=== PATIENT | female | born 1955 | race Caucasian/White ===

== ENCOUNTER → 2017-06-29 13:46 | Outpatient (CLI) | payer OTHER, SELFPAY ==
[2017-06-29 16:31] LABS: Hemoglobin A1c 5.2 % (4.2-6.3)
[2017-06-29 16:32] LABS: Free T3 2.5 pg/mL (2.18-3.98); T4 Free Direct 0.97 ng/dL (0.76-1.46); Thyroid Stim Hormone (TSH) 2.22 uIU/mL (0.358-3.74)
[2017-07-01 12:56] LABS: ANTINUCLEAR ANTIBODIES DIRECT Negative (Negative)
== END ==
PROVIDERS: Family Provider Family Medicine; PCP Family Medicine; Visit Provider Family Medicine
DX: R76.8 Other specified abnormal immunological findings in serum (principal); R73.01 Impaired fasting glucose; H05.20 Unspecified exophthalmos; R25.1 Tremor, unspecified
CPT/HCPCS: 36415; 83036; 84439; 84443; 84481; 86038; 86225; 86235

== ENCOUNTER → 2018-01-11 07:08 | Outpatient (CLI) | payer OTHER, SELFPAY ==
--- NOTE | 2018-01-11 07:11 | BI_ITS ---
MAMMOGRAPHY - BILATERAL SCREENING REASON FOR EXAM: Female, 62 years old. Routine annual screening examination. PERTINENT HISTORY: Non-contributory. TECHNIQUE: Digital bilateral breast sam (3D mammographic acquisition) in the CC and MLO projections. 2-D mediolateral oblique (MLO) and craniocaudad (CC) views of both breasts were obtained. CAD: Full Field Digital Mammography with Computer Added Detection was performed. COMPARISON: Comparison is made with prior study dated December 24, 2016 and December 24, 2015. FINDINGS: Breast Composition: The breasts are almost entirely fatty. There are no dominant masses or suspicious calcifications. Stable small bilateral axillary lymph nodes. No other significant abnormalities are identified. There has been no significant change since the prior study. BI/SCREENING MAMM (CAD), BILAT IMPRESSION: Stable bilateral screening mammogram. Yearly follow-up mammogram recommended. (A) ASSESSMENT CATEGORY: BIRADS Category 2: Benign. A letter regarding these results will be sent to the patient by the facility within 30 days. Approximately 10% of breast cancers are not detected by mammography. A normal mammogram should not delay biopsy of a clinically suspicious abnormality. [id number] Electronically Signed: Lencho Marinelli MD at 10:16 EST Tel [phone], Service support ,
== END ==
PROVIDERS: Family Provider Family Medicine; PCP Family Medicine; Referring Provider Family Medicine; Visit Provider Family Medicine
DX: Z12.31 Encounter for screening mammogram for malignant neoplasm of breast (principal)
CPT/HCPCS: 77063; 77067

== ENCOUNTER → 2019-01-14 10:42 | Outpatient (CLI) | payer OTHER, SELFPAY ==
--- NOTE | 2019-01-14 10:45 | BI_ITS ---
MAMMOGRAPHY - BILATERAL SCREENING REASON FOR EXAM: Female, 63 years old. Routine annual screening examination. PERTINENT HISTORY: Aunt with breast cancer. TECHNIQUE: Digital bilateral breast sam (3D mammographic acquisition) in the CC and MLO projections. 2-D mediolateral oblique (MLO) and craniocaudad (CC) views of both breasts were obtained. CAD: Full Field Digital Mammography with Computer Added Detection was performed. COMPARISON: Comparison is made with prior study dated January 11, 2018 and December 24, 2016. FINDINGS: Breast Composition: The breasts are almost entirely fatty. There are no dominant masses or suspicious calcifications. Stable small bilateral axillary lymph nodes. No other significant abnormalities are identified. There has been no significant change since the prior study. BI/SCREENING MAMM (CAD), BILAT IMPRESSION: Stable bilateral screening mammogram. Yearly follow-up mammogram recommended. (A) ASSESSMENT CATEGORY: BIRADS Category 2: Benign. A letter regarding these results will be sent to the patient by the facility within 30 days. Approximately 10% of breast cancers are not detected by mammography. A normal mammogram should not delay biopsy of a clinically suspicious abnormality. [id number] Electronically Signed: Lencho Marinelli, at 12:53 EST , Service support ,
== END ==
PROVIDERS: Family Provider Family Medicine; PCP Family Medicine; Referring Provider Family Medicine; Visit Provider Family Medicine
DX: Z12.31 Encounter for screening mammogram for malignant neoplasm of breast (principal)
CPT/HCPCS: 77063; 77067

== ENCOUNTER → 2020-01-31 10:27 | Outpatient (CLI) | payer MEDICARE, MEDICAID, SELFPAY ==
--- NOTE | 2020-01-31 10:31 | BI_ITS ---
MAMMOGRAPHY - BILATERAL SCREENING REASON FOR EXAM: Female, 64 years old. Routine annual screening examination. PERTINENT HISTORY: Screening TECHNIQUE: Digital bilateral breast diana (3D mammographic acquisition) in the CC and MLO projections. 2-D mediolateral oblique (MLO) and craniocaudad (CC) views of both breasts were obtained. CAD: Full Field Digital Mammography with Computer Added Detection was performed. COMPARISON: Previous mammogram obtained on 01/14/2019 FINDINGS: Breast Composition: Fatty There are no dominant masses or suspicious calcifications. No other significant abnormalities are identified. BI/SCREEN MAMM (CAD) W/DIANA BILAT IMPRESSION: Stable bilateral screening mammogram. Yearly follow-up mammogram recommended. (A) ASSESSMENT CATEGORY: BIRADS Category 1: Negative. A letter regarding these results will be sent to the patient by the facility within 30 days. Approximately 10% of breast cancers are not detected by mammography. A normal mammogram should not delay biopsy of a clinically suspicious abnormality. [id number] Electronically Signed: Bang Avina, at 8:23 EST Tel , Service support ,
== END ==
PROVIDERS: PCP Family Medicine; Referring Provider Family Medicine; Visit Provider Family Medicine
DX: Z12.31 Encounter for screening mammogram for malignant neoplasm of breast (principal)
CPT/HCPCS: 77063; 77067

== ENCOUNTER → 2021-02-01 09:59 | Outpatient (CLI) | payer MEDICARE, MEDICAID, SELFPAY ==
--- NOTE | 2021-02-01 10:02 | BI_ITS ---
MAMMOGRAPHY - BILATERAL SCREENING REASON FOR EXAM: Female, 65 years old. Routine annual screening examination. PERTINENT HISTORY: Aunt with breast cancer. TECHNIQUE: Digital bilateral breast diana (3D mammographic acquisition) in the CC and MLO projections. 2-D mediolateral oblique (MLO) and craniocaudad (CC) views of both breasts were obtained. CAD: Full Field Digital Mammography with Computer Added Detection was performed. COMPARISON: Comparison is made with prior study dated 01/31/2020 and 01/14/2019. FINDINGS: Breast Composition: The breasts are almost entirely fatty. There are no dominant masses or suspicious calcifications. Stable small benign-appearing bilateral axillary lymph nodes. No other significant abnormalities are identified. There has been no significant change since the prior study. BI/SCRN MAMM (CAD)W/DIANA BILAT IMPRESSION: Stable bilateral screening mammogram. Yearly follow-up mammogram recommended. (A) ASSESSMENT CATEGORY: BIRADS Category 2: Benign. A letter regarding these results will be sent to the patient by the facility within 30 days. Approximately 10% of breast cancers are not detected by mammography. A normal mammogram should not delay biopsy of a clinically suspicious abnormality. [id number] Electronically Signed: Lencho Marinelli MD at 8:49 EST , Service support ,
== END ==
PROVIDERS: PCP Family Medicine; Referring Provider Family Medicine; Visit Provider Family Medicine
DX: Z12.31 Encounter for screening mammogram for malignant neoplasm of breast (principal)
CPT/HCPCS: 77063; 77067

== ENCOUNTER → 2022-02-07 | Outpatient (CLI) | payer MEDICARE, MEDICAID, SELFPAY ==
--- NOTE | 2022-02-07 10:27 | BI_ITS ---
MAMMOGRAPHY - BILATERAL SCREENING REASON FOR EXAM: Female, 66 years old. Routine annual screening examination. PERTINENT HISTORY: Aunt with breast cancer. TECHNIQUE: Digital bilateral breast diana (3D mammographic acquisition) in the CC and MLO projections. 2-D mediolateral oblique (MLO) and craniocaudad (CC) views of both breasts were obtained. CAD: Full Field Digital Mammography with Computer Added Detection was performed. COMPARISON: Comparison is made with dictated 02/01/2021 and 01/31/2020 FINDINGS: Breast Composition: The breasts are almost entirely fatty. There are no dominant masses or suspicious calcifications. No other significant abnormalities are identified. There has been no significant change since the prior study. BI/SCRN MAMM (CAD)W/DIANA BILAT IMPRESSION: Stable bilateral screening mammogram. Yearly follow-up mammogram recommended. (A) ASSESSMENT CATEGORY: BIRADS Category 1: Negative. A letter regarding these results will be sent to the patient by the facility within 30 days. Approximately 10% of breast cancers are not detected by mammography. A normal mammogram should not delay biopsy of a clinically suspicious abnormality. [id number] Electronically Signed: Lencho Marinelli MD at 11:49 EST ,
== END | disposition home or self-care (01) ==
PROVIDERS: PCP Family Medicine; Visit Provider Family Medicine
DX: Z12.31 Encounter for screening mammogram for malignant neoplasm of breast (principal)
CPT/HCPCS: 77063; 77067

== ENCOUNTER → 2022-07-26 | Outpatient (CLI) | payer MEDICARE, MEDICAID, SELFPAY ==
--- NOTE | 2022-07-26 09:36 | RAD_ITS ---
STUDY: X-RAY CHEST REASON FOR EXAM: Female, 66 years old. CHEST HEAVINESS, SOB TECHNIQUE: Frontal and lateral views of the chest. COMPARISON: 04/18/2015. FINDINGS: The lungs are clear and expanded. There is no demonstrated pleural abnormality. Normal size heart. Normal mediastinum and roman. Normal visualized pulmonary arteries. Normal visualized aortic arch and descending thoracic aorta. Normal visualized thoracic spine. Normal visualized ribs, clavicles, and shoulders. There is no demonstrated abnormality of the visualized soft tissue structures of the upper abdomen. RAD/Chest PA and Lateral IMPRESSION: Normal x-ray examination of the chest. Electronically Signed: Juan Diego Crews MD at 22:46 EDT ,
[2022-07-26 09:48] LABS: Absolute Lymphocyte Count 2.22 X10^3/uL (0.83-4.51); Absolute Neutrophil Count 3.9 X10^3/uL (2.0-7.7); Basophil# 0.07 X10^3/uL; Eosinophil# 0.16 X10^3/uL; Eosinophils% 2.3 % (0-5); Hematocrit 44.9 % (37-47); Hemoglobin 14.7 g/dL (12.0-15.0); Lymphocyte # 2.22 X10^3/ul (0.83-4.51); Lymphocyte % 31.9 % (19-41); Mean Corp Hgb Conc 32.7 g/dL (32-36); Mean Corpuscular Hgb 29.3 pg (27.0-32.0); Mean Corpuscular Volume 89.4 fL (81-99); Mean Platelet Vol. 8.5 fl (6.2-12.0); Monocyte# 0.56 X10^3/uL; NRBC Flagged by Analyzer 0 % (0-5); Neutrophil # 3.94 X10^3/uL (2.7-7.7); Neutrophil % 56.7 % (47-70); Platelet Count 258 K/mm3 (150-450); RBC Distribution Width CV 12.8 % (11.6-14.6); RBC Distribution Width SD 41.9 fl (35.1-43.9); Red Blood Count 5.02 M/mm3 (4.2-5.4)
[2022-07-26 10:15] LABS: ALB/GLOB Ratio 0.9 RATIO (0.9-2.4); AST(SGOT) 22 U/L (15-37); Alanine Aminotransfer ALT/SGPT 26 U/L (13-56); Albumin, Serum 3.5 g/dL (3.2-5.0); Alkaline Phosphatase 66 U/L (45-117); Anion Gap 7 (5-15); BUN 16 mg/dL (7-18); BUN/Creat Ratio 18.6 RATIO (10-20); CRP, High Sensitivity Cardiac 1.23 mg/L; Calcium,Total 9.3 mg/dL (8.5-10.1); Chloride 107 mmol/L (98-107); Cholesterol 166 mg/dL (200); Creatinine, Serum 0.86 mg/dL (0.55-1.02); EST Glomerular Filtration Rate 70 mL/min (>60); Est Glom Filt Rate - Afr Amer 84 mL/min (>60); Free T3 2.5 pg/mL (2.18-3.98); Glucose 103 mg/dL (74-106); High Density Lipoprotein 49 mg/dL; Magnesium 2.2 mg/dL (1.6-2.6); Potassium 4.5 mmol/L (3.5-5.1); Protein, Total 7.5 g/dL (6.4-8.2); Sodium Level 141 mmol/L (136-145); T4 Free Direct 1.08 ng/dL (0.76-1.46); Thyroid Stim Hormone (TSH) 2.05 uIU/mL (0.358-3.74); Triglycerides 78 mg/dL; Very Low Density Lipoprotein 16 mg/dL (5-40)
== END | disposition home or self-care (01) ==
LOC: LAB 09:18
PROVIDERS: PCP Nurse Practitioner Family; Visit Provider Nurse Practitioner Family
DX: E78.5 Hyperlipidemia, unspecified (principal); I10 Essential (primary) hypertension; R53.83 Other fatigue; R00.2 Palpitations; Z87.19 Personal history of other diseases of the digestive system; R07.89 Other chest pain
CPT/HCPCS: 36415; 71046; 80053; 80061; 83735; 84439; 84443; 84481; 85025; 86141

== ENCOUNTER → 2022-07-29 | Outpatient (CLI) | payer MEDICARE, MEDICAID, SELFPAY | END | disposition home or self-care (01) | LOC: PSN 12:44 | PROVIDERS: PCP Nurse Practitioner Family; Referring Provider Nurse Practitioner Family; Visit Provider Nurse Practitioner Family | DX: R06.02 Shortness of breath (principal); R07.89 Other chest pain; R00.2 Palpitations | CPT/HCPCS: 93225; 93226 ==

== ENCOUNTER → 2022-08-25 | Outpatient (CLI) | payer MEDICARE, MEDICAID, SELFPAY ==
--- NOTE | 2022-08-25 10:45 | STEWCON_ITS ---
Reason For Study: PALPS, CHEST PAIN Stress Results Protocol: Dobutamine Stress Echo With Definiity Maximum Predicted HR: 153 bpm Target HR: 130 bpm % Maximum Predicted HR: 85 % DurationHeart Rate Stage (mm:ss) (bpm) BP Dose Comment BASELINE 67 136/80 5 CC DEFINITY FOR ENTIRE TEST STAGE 1 4:06 67 150/9410.00 STAGE 2 3:00 67 158/8520.00 STAGE 3 3:03 123 145/87500.00 STAGE 4 0:45 130 / 40.00 RECOVERY 85 165/57 Stress Duration: 10:54 mm:ss Maximum Stress HR: 130 bpm Baseline Echocardiogram Findings Stress Echo Wall motion Data Resting WM Intermediate WM Stress WM Time Measurements MV dec time: 0.27 sec Doppler Measurements & Calculations MV E max gordo: 69.7 cm/sec MV dec slope: 262.8 cm/sec2 TR max gordo: 248.1 cm/sec MV A max gordo: 104.6 cm/sec TR max P.6 mmHg MV E/A: 0.67 ECHO/Stress Test Echo W/Contrast Interpretation Summary dobutamine stress echocardiogram. 66-year-old lady with a history of chest pain. Resting EKG demonstrates normal sinus rhythm with a rate of 68 bpm normal inter vals are noted resting blood pressure is 136/80 mmHg. Dobutamine was infused starting at 5 mcg /kg/min increasing to 10 mcg/kg/min and increasing in 3-minute durations. The maximum dose was 40 mcg /kg/min. Continuous EKG monitoring was performed. The maximum heart rate was noted to be 137 bpm wh ich was 89% of max impacted heart rate the maximum workload was 1 metabolic equivalent. The patien t maintained sinus rhythm throughout the recording there were no ST or T wave changes noted to sug gest ischemia. The peak blood pressure was 158/85 mmHg. The test was terminated due to the target achievement of heart rate. Stress echocardiogram. Resting echocardiogram was performed with Definity enhancement to the estimated ejection fraction was 55%. At low dose there was augmentation of left ventricular function and at peak dose the estimated ejection fraction was 75% with no wall motion abnormalities present. Conclusion: Dobutamine stress echocardiogram with no evidence of ischemia at max dobutamine dose. Ordering Physician: Keily Partida Referring Physician: Keily Partida Performed By: Keily Kelsey, FOR[place]UN[place], RVT
== END | disposition home or self-care (01) ==
LOC: CVS 10:42
PROVIDERS: PCP Nurse Practitioner Family; Referring Provider Nurse Practitioner Family; Visit Provider Nurse Practitioner Family
DX: R00.2 Palpitations (principal); R07.9 Chest pain, unspecified; R06.02 Shortness of breath; R42 Dizziness and giddiness
CPT/HCPCS: 93017; 93350; J7040; Q9957; A4216; C8928

== ENCOUNTER → 2022-09-17 | Outpatient (CLI) | payer MEDICARE, SELFPAY ==
[2022-09-17 16:15] LABS: Absolute Lymphocyte Count 2.96 X10^3/uL (0.83-4.51); Absolute Neutrophil Count 4.4 X10^3/uL (2.0-7.7); Basophil# 0.07 X10^3/uL; Basophil% 0.9 % (0-1); Eosinophil# 0.15 X10^3/uL; Eosinophils% 1.8 % (0-5); Hematocrit 43.5 % (37-47); Hemoglobin 14.2 g/dL (12.0-15.0); Lymphocyte # 2.96 X10^3/ul (0.83-4.51); Mean Corp Hgb Conc 32.6 g/dL (32-36); Mean Corpuscular Hgb 29.2 pg (27.0-32.0); Mean Corpuscular Volume 89.5 fL (81-99); Mean Platelet Vol. 9.1 fl (6.2-12.0); Monocyte# 0.65 X10^3/uL; Monocyte% 7.9 % (0-10); NRBC Flagged by Analyzer 0 % (0-5); Neutrophil # 4.38 X10^3/uL (2.7-7.7); Neutrophil % 53.2 % (47-70); Platelet Count 260 K/mm3 (150-450); RBC Distribution Width CV 12.9 % (11.6-14.6); RBC Distribution Width SD 42.4 fl (35.1-43.9); Red Blood Count 4.86 M/mm3 (4.2-5.4); White Blood Count 8.2 K/mm3 (4.4-11.0)
[2022-09-17 16:40] LABS: Anion Gap 8 (5-15); BUN 12 mg/dL (7-18); BUN/Creat Ratio 15.6 RATIO (10-20); Calcium,Total 9.5 mg/dL (8.5-10.1); Chloride 102 mmol/L (98-107); Creatinine, Serum 0.77 mg/dL (0.55-1.02); EST Glomerular Filtration Rate 80 mL/min (>60); Est Glom Filt Rate - Afr Amer 96 mL/min (>60); Glucose 72 mg/dL (74-106); Sodium Level 138 mmol/L (136-145)
== END | disposition home or self-care (01) ==
PROVIDERS: PCP Nurse Practitioner Family; Referring Provider Internal Medicine Cardiovascular Disease; Visit Provider Internal Medicine Cardiovascular Disease
DX: R42 Dizziness and giddiness (principal)
CPT/HCPCS: 36415; 80048; 85025

== ENCOUNTER → 2022-10-03 | Outpatient (CLI) | payer MEDICARE, SELFPAY ==
--- NOTE | 2022-10-03 12:28 | CT_ITS ---
STUDY: CT CHEST WITHOUT CONTRAST REASON FOR EXAM: Female, 66 years old. CHEST PAIN. CARDIAC OVERREAD FOR CALCIUMSCORE AND FULL CARDIAC RADIATION DOSAGE (If Supplied By Facility): CTDIvol = ( 51.47 ) mGy, DLP = ( 1282.33 ) mGycm TECHNIQUE: Transaxial imaging was performed without the administration of intravenous contrast material. Individualized dose optimization techniques were used for this CT. COMPARISON: No relevant priors. FINDINGS: CHEST Mild increased markings at the peripheral aspect of the right lung base suggestive of either mild scarring and/or atelectasis. There is no demonstrated pleural abnormality. Mild calcification of the LAD. Normal mediastinum. Normal hilar regions. Normal unenhanced pulmonary arteries. Normal aorta arch and descending thoracic aorta. Normal osseous structures. There is no demonstrated abnormality of the visualized upper abdomen. IMPRESSION: Mild degree of coronary artery calcification of the LAD. Increased markings in the peripheral aspect of the right lower lobe suggestive of atelectasis and/or scarring. Electronically Signed: Lencho Marinelli MD at 13:45 EDT , STUDY: CT CHEST with CONTRAST REASON FOR EXAM: Female, 66 years old. CHEST PAIN. CARDIAC OVERREAD FOR CALCIUMSCORE AND FULL CARDIAC RADIATION DOSAGE (If Supplied By Facility): CTDIvol = ( 41.56 ) mGy, DLP = ( 1282.33 ) mGycm TECHNIQUE: Transaxial imaging was performed without the administration of intravenous contrast material. Individualized dose optimization techniques were used for this CT. COMPARISON: No relevant priors. FINDINGS: CHEST Mild increased markings in the peripheral lateral aspect of the right lobe suggestive of atelectasis and/or scarring. There is no demonstrated pleural abnormality. Mild degree of calcification of the LAD. Normal mediastinum. Normal hilar regions. Normal unenhanced pulmonary arteries. Normal aorta arch and descending thoracic aorta. Normal osseous structures. There is no demonstrated abnormality of the visualized upper abdomen. CT/Limited Chest CT Cardiac Only IMPRESSION: Mild calcification of the LAD. Electronically Signed: Lencho Marinelli MD at 13:46 EDT ,
--- NOTE | 2022-10-03 17:09 | CCTA_ITS ---
CCTA w/Cont Coronary Arteries Date of Study:: 10/03/22 Chest pain Coronary Calcium Scoring: High-resolution Computed Tomographic imaging of the chest was performed on [10/03/2022], with particular attention paid to the coronary arteries. Images from the examination were also analyzed for the presence and extent of coronary artery calcification using the coronary calcification quantification software. Intravenous contrast agent was administered per protocol and images reconstructed and displayed. The patient tolerated the procedure well. LEFT MAIN CORONARY ARTERY: [This arose from the left coronary cusp and bifurcating to left anterior descend ing artery and the left circumflex artery. No significant stenosis was noted in this vessel.] LEFT ANTERIOR DESCENDING CORONARY ARTERY: This was a medium size vessel with mild proximal eccentric calcification with mild atherosclerotic plaquing. The vessel continued towards the apex of the ventricle with no significant stenosis present LEFT CIRCUMFLEX CORONARY ARTERY: Nondominant but large vessel coursing in the AV groove arising from the left main coronary artery with no significant atherosclerosis noted RIGHT CORONARY ARTERY: Dominant vessel with no significant atherosclerotic plaquing present. THORACIC AORTA: Normal size PULMONARY ARTERY: Normal size LEFT ATRIUM/APPENDAGE: Normal MITRAL VALVE: Normal AORTIC VALVE: [place] LEFT VENTRICLE: [] CORONARY CALCIUM SCORE: 2.78. With percentile ranking between 25th and 50th percentile. Conclusion: Mild atherosclerotic plaquing involving the left anterior descending artery o nly.
== END | disposition home or self-care (01) ==
PROVIDERS: PCP Nurse Practitioner Family; Referring Provider Nurse Practitioner Gerontology; Visit Provider Nurse Practitioner Gerontology
DX: R07.9 Chest pain, unspecified (principal); R06.02 Shortness of breath
CPT/HCPCS: 75571; 75574; 76380; Q9967; A4216

== ENCOUNTER → 2022-12-02 | Outpatient (CLI) | payer MEDICARE, SELFPAY ==
--- NOTE | 2022-12-02 14:35 | PFTCOMP ---
COMPLETE PULMONARY FUNCTION TEST INTERPRETATION Brief HPI: Patient is a 66-year-old female, currently under the care of myself, who presents to [facility] for complete pulmonary function tests secondary to diagnosis of dyspnea. Respiratory therapist reports good effort and reproducible results. Interpretation: Forced expiration spirometry shows no large airways obstructive ventilatory defect with an FEV1 of 91% predicted. There is no significant bronchodilator response by strict ATS criteria. Spirograms are of good quality and plateau normally. The respiratory flow volume loop shows a normal pattern. Lung volumes by body plethysmography show a normal total lung capacity at 4.36 L, 88% predicted. All other lung volumes are within normal limits. Diffusion capacity by carbon monoxide is normal at 80% predicted. The airway resistance is slightly elevated. No previous pulmonary function tests were available for review. Impression: These pulmonary function tests are grossly within normal limits.
== END | disposition home or self-care (01) ==
LOC: PSN 09:41
PROVIDERS: PCP Nurse Practitioner Family; Referring Provider Internal Medicine Critical Care Medicine; Visit Provider Internal Medicine Critical Care Medicine
DX: R06.02 Shortness of breath (principal)
CPT/HCPCS: 94060; 94726; 94729

== ENCOUNTER → 2022-12-04 | Outpatient (CLI) | payer MEDICARE, SELFPAY ==
[2022-12-04 12:42] VITALS: PULSE 61; PULSE 64; PULSE 75; PULSE 88; PULSE 95; PULSE 97; O2SAT 95; O2SAT 97; O2SAT 98
--- NOTE | 2022-12-05 05:58 | PCM.PSN.6M ---
PSN 6 Minute Walk Test 6 Minute Walk Test 6 Minute Walk Test: 6 Minute Walk Test PSN:6-Minute Walk Test Start: 12/04/22 12:41 Freq: Status: Active Protocol: RESP.6MINW Document 12/04/22 12:42 JULIO CÉSARWILMAN (Rec: 12/04/22 12:44 JULIO CÉSARWILMAN [id number]) 6 Minute Walk Test Date Performed 12/04/22 Time Performed 12:30 Height 5 ft 4 in Weight: 91.172 kg Weight in Pounds 201.[address]: Maldonado Palacios Assistive device used: None Pre-test Oxygen Delivery Method Room Air Pulse Ox 98 Pulse Rate (60-100) 61 Dyspnea Nena Scale (0-10) 1 Exertion Nena Scale (6-20) 6 1st minute Oxygen Delivery Method Room Air Pulse Ox 95 Pulse Rate (60-100) 75 2nd minute Oxygen Delivery Method Room Air Pulse Ox 95 Pulse Rate (60-100) 88 3rd minute Oxygen Delivery Method Room Air Pulse Ox 97 Pulse Rate (60-100) 95 4th minute Oxygen Delivery Method Room Air Pulse Ox 98 Pulse Rate (60-100) 95 5th minute Oxygen Delivery Method Room Air Pulse Ox 98 Pulse Rate (60-100) 97 6th minute Oxygen Delivery Method Room Air Pulse Ox 98 Pulse Rate (60-100) 97 Dyspnea Nena Scale (0-10) 3 Exertion Nena Scale (6-20) 13 Post-test Oxygen Delivery Method Room Air Pulse Ox 98 Pulse Rate (60-100) 64 Full Laps Walked 18 Partial Lap, Number of Tiles Walked 17 Total Distance Walked (ft) 1079 Interpretation Interpretation: The patient was able to ambulate 1079 feet over the course of 6 minutes on room air with no assistive devices or breaks. The patient experienced no significant desaturation or tachycardia during testing. These findings are consistent with a normal walking oximetry. Recommendations Recommendations: No supplemental oxygen is indicated at this time.
== END | disposition home or self-care (01) ==
LOC: PSN 12:17
PROVIDERS: PCP Nurse Practitioner Family; Referring Provider Internal Medicine Critical Care Medicine; Visit Provider Internal Medicine Critical Care Medicine
DX: R06.02 Shortness of breath (principal); G47.10 Hypersomnia, unspecified
CPT/HCPCS: 94618; 95806

== ENCOUNTER → 2023-02-09 | Outpatient (CLI) | payer MEDICARE, SELFPAY ==
--- NOTE | 2023-02-09 11:58 | BI_ITS ---
MAMMOGRAPHY - BILATERAL SCREENING REASON FOR EXAM: Female, 67 years old. Routine annual screening examination. PERTINENT HISTORY: Aunt with breast cancer. TECHNIQUE: Digital bilateral breast diana (3D mammographic acquisition) in the CC and MLO projections. 2-D mediolateral oblique (MLO) and craniocaudad (CC) views of both breasts were obtained. CAD: Full Field Digital Mammography with Computer Added Detection was performed. COMPARISON: Comparison is made with prior examination of February 07, 2022 and February 01, 2021. FINDINGS: Breast Composition: The breasts are almost entirely fatty. There are no dominant masses or suspicious calcifications. Stable small benign-appearing bilateral axillary lymph nodes. No other significant abnormalities are identified. There has been no significant change since the prior study. BI/SCRN MAMM (CAD)W/DIANA BILAT IMPRESSION: Stable bilateral screening mammogram. Yearly follow-up mammogram recommended. (A) ASSESSMENT CATEGORY: BIRADS Category 2: Benign. A letter regarding these results will be sent to the patient by the facility within 30 days. Approximately 10% of breast cancers are not detected by mammography. A normal mammogram should not delay biopsy of a clinically suspicious abnormality. [id number] Electronically Signed: Lencho Marinelli MD at 13:29 EST ,
== END | disposition home or self-care (01) ==
LOC: OPBI 11:57
PROVIDERS: PCP Nurse Practitioner Family; Referring Provider Nurse Practitioner Family; Visit Provider Nurse Practitioner Family
DX: Z12.31 Encounter for screening mammogram for malignant neoplasm of breast (principal)
CPT/HCPCS: 77063; 77067

== ENCOUNTER 2023-04-07 06:16 | Day surgery (SDC) | payer MEDICARE, SELFPAY ==
--- OUTSIDE RECORDS SUMMARY | 2023-04-07 06:19 | XMS RPT_ITS | CCD ---
Author Name Unknown Address [address] [place] [address] Organization [facility] Results Test Name Value Interpretation Reference Range Facil ity Summary Purpose Family History No Family History Records Found Advance Directives No Advanced Directives Records Found Additional Source Comments INFORMATION SOURCE (unrecogn ized section and content) FOR RECORDS PERTAINING TO PATIENTS WHO ARE OR HAVE BEEN ENROLLED IN A CHEMICAL DEPENDENCY/SUBSTANCEABUSE PROGRAM, SOME INFORMATION MAY BE OMITTED. This clinical summary was aggregated from multiple sources. Caution should be exercised in using it in the provision of clinical care. This summary normalizes information from multiple sources, and as a consequence, information in this document may materially change the coding, format and clinical context of patient data. In addition, data may be omitted in some cases. CLINICAL DECISIONS SHOULD BE BASED ON THE PRIMARY CLINICAL RECORDS. [employer] provides no warranty or guarantee of the accuracy or completeness of information in this document.
[2023-04-07 06:39] VITALS: BP 149/90; PULSE 87; RESP 18; TEMP 36.4; O2SAT 100; BMI 36.7
[2023-04-07] MEDS: Lactated Ringers 1,000 ML 15 ML IV (06:45)
--- NOTE | 2023-04-07 07:01 | HP.PCM_ITS ---
History and Physical Date of Admission: 04/07/23 Intake Vital Signs 03/05/2305:50 03/16/2412:41 Height 5 ft 4 in Weight: 210 lb 218 lb BMI 36.0 BP 144/87 H 139/96 H Blood Pressure Location Rt brachial Rt brachial Position Sitting Sitting Respiration 20 H 17 Pulse 66 74 Pulse Source Monitor Monitor Temp 96.7 F L 96.6 F L Temp Source Temporal Pulse Oximetry (%) 99 97 Oxygen Delivery Method room air room air Intake Visit Reasons: UPPER & LOWER FOR GERD Chief Complaint: upper and lower scopes Is patient in pain?: No Allergies acetaminophen [From Darvocet-N] Allergy (Unknown, Verified 03/16/23 13:42) UnknownIodinated Contrast Media Allergy (Unknown, Verified 03/16/23 13:42) Unknownpropoxyphene [From Darvocet-N] Allergy (Unknown, Verified 03/16/23 13:42) UnknownSulfa (Sulfonamide Antibiotics) Allergy (Unknown, Verified 03/16/23 13:42) Unknown Medications aspirin 81 mg tablet,delayed release (Adult Low Dose Aspirin) 81 mg PO DAILY 09/11/22 [History Confirmed 03/16/23] calcium carbonate 1,000 mg-vitamin D3 20 mcg (800 unit) tablet 1 tab PO DAILY 09/11/22 [History Confirmed 03/16/23] citalopram 10 mg tablet (Celexa) 10 mg PO DAILY 09/11/22 [History Confirmed 03/16/23] famotidine 20 mg tablet 20 mg PO BID 09/11/22 [History Confirmed 03/16/23] garlic 1,000 mg capsule 1,000 mg PO DAILY 09/11/22 [History Confirmed 03/16/23] latanoprost 0.005 % eye drops 1 drp ophthalmic (eye) DAILY 09/11/22 [History Confirmed 03/16/23] metoprolol tartrate 25 mg tablet 25 mg PO QHS 09/11/22 [History Confirmed 03/16/23] omega 0-xnc-xzm-fish oil 1,200 mg (144 mg-216 mg) capsule (Fish Oil) 1 cap PO BID 09/11/22 [History Confirmed 03/16/23] timolol 0.25 % eye drops 1 drp ophthalmic (eye) BID 09/11/22 [History Confirmed 03/16/23] vitamin B complex 1 cap PO DAILY 09/11/22 [History Confirmed 03/16/23] [facility] Medical History Anxiety Essential hypertension Exophthalmos Glaucoma Palpitations SOB (shortness of breath) Tremor Surgical History History of hysterectomy Family History (Updated 03/16/23 @ 13:41 by Masha Schumacher) Father CAD (coronary artery disease) CVA (cerebral vascular accident) Diabetes Heart disease HypertensionMother Hypertension Social History Smoking Status: Former smoker Tobacco: How many years used: 1 alcohol intake: never substance use type: does not use caffeine: Yes HPI HPI HPI: The patient is a 67-year-old female here for GERD and dysphagia. The patient also need screening colonoscopy. Patient reports that she has had longstanding GERD. She is only on famotidine which was just recently started. She says she is also experiencing dysphagia and feels like some pills are getting stuck. She feels like in the middle the night she wakes up and belches up undigested food. She also feels short of breath. She is also not had a screening colonoscopy since 2004. She denies abdominal pain or blood in the stool. She does admit to weight gain. ROS General General: Yes weight change and fatigue; No appetite, colon cancer, breast cancer or weakness HEENT HEENT: Yes eye surgery; No difficulty swallowing, eye injury, swollen glands or hoarseness Endo Endocrine: No thyroid disease, diabetes mellitus, thyroid cancer, Hair loss, heat intolerance or cold intolerance Skin Skin: No rash or changing moles Musc Musculoskeletal: Yes back problems; No arthritis, rheumatoid arthritis, gout or joint pain Cardio Cardiovascular: Yes high blood pressure; No murmur, pacemaker, heart disease, atrial fibrillation, heart attack, heart stent, palpitations, shortness of breat with exertion or chest pain Psych Psychiatric: Yes depression; No anxiety or hearing voices Resp Respiratory: Yes shortness of breath, No sleep apnea, No cough, No COPD, No asthma, No emphysema and No wheezing Gastro Gastrointestinal: No abdominal pain, No nausea or vomiting, No diarrhea, Yes constipation, No blood in stool, Yes acid reflux, Yes hemorrhoids, No ulcers, No gallbladder problem and No black,tarry stools Medhat Hematologic: No blood thinners, No blood disorders, No bleeding, No anemia and No blood clots Neuro Neurologic: No system reviewed and no additional complaints, except as documented, No as per HPI, No abnormal gait, No abnormal hearing, No abnormal movements, No abnormal speech, No behavioral changes, No burning sensations, No confusion, No convulsions, No disequilibrium, No dizziness, No localized weakness, No frequent falls, No headache(s), No lack of coordination, No loss of vision, No memory loss, Yes numbness, No other visual disturbances, No radicular pain, No restless legs, No sensory deficit, No syncope, Yes tingling, No tremor(s), No weakness and No other Exam Const General: cooperative Orientation: alert and oriented x3 HENMT Head: normal to inspection Neck Neck: normal visual inspection and full ROM Chest Chest palpation & inspection: normal inspection of the chest Resp Effort & Inspection: normal respiratory effort Auscultation: clear to auscultation bilaterally Cardio Rate: regular rate Rhythm: regular rhythm GI Inspection: non-distended Palpation: soft and nontender Skin General: no rashes or lesions noted Neuro General: patient alert and patient oriented x3 Extrem General: full ROM Psych Appearance: grossly normal Mental Status: mental status grossly normal Assessment and Plan Assessment and Plan (1) Encounter for screening colonoscopy: Status: Acute Plan: The patient has not had a screening colonoscopy in almost 20 years. I recommended screening colonoscopy. I explained endoscopy in detail to the patient. I explained the risks including but not limited to stroke or heart attack with anesthesia, perforation of the GI tract, bleeding, infection. I explained that any of these could necessitate further emergency surgery. The patient understands and all questions were answered sufficiently. The patient wishes to proceed with procedure. (2) Chronic gastroesophageal reflux disease: Status: Chronic Plan: The patient is having chronic GERD and dysphagia. I reviewed her CT scan from September for her cardiac angiography and there did not appear to be a hiatal hernia on that scan. I discussed EGD with her and I will perform biopsies if needed. I have also asked her to stop her famotidine and start omeprazole until I am able to complete the scope. Raul Torres MD Pager: [facility] [address] [place] [address], [address] [place] [address] Office: I have examined the patient and the H&P has been reviewed. There are no clinical changes since date of exam.
[2023-04-07 08:02] VITALS: BP 109/59; BP 149/90; PULSE 84; RESP 16; TEMP 36.6; O2SAT 98
[2023-04-07 08:05] VITALS: BP 104/62; BP 149/90; PULSE 74; PULSE 84; RESP 16; O2SAT 96; O2SAT 98
--- NOTE | 2023-04-07 08:08 | OP.CCLET_ITS ---
04/07/2023 Leonel Narayanan Re : Upper GI endoscopy procedure for Deedee Kerrr Jaquan This procedure was performed on Friday, April 07, 2023. My impressions and recommendations are as follows: Impressions : - Benign-appearing esophageal stenosis. Dilated. - Normal examined duodenum. - Normal stomach. - No specimens collected. Recommendations : - Discharge patient to home. - Resume previous diet. - Continue present medications. My findings are described in the full procedure note, which is enclosed. If I can be of further assistance, please feel free to contact me at Doctor phone number(s): , Work: . Sincerely, Raul Torres MD 04/07/2023 8:07:20 AM This report has been signed electronically.
--- NOTE | 2023-04-07 08:08 | OP.EGD_ITS ---
Patient Name: Deedee Cortes Procedure Date: 04/07/2023 5:29 AM Date of : 1955 Age: 67 Procedure: Upper GI endoscopy Indications: Dysphagia, Heartburn Providers: Raul Torres MD Referring MD: Raul Torres MD Medicines: Monitored Anesthesia Care Patient Profile: This is a 67 year old female. Refer to note in patient chart for documentation of history and physical. Complications: No immediate complications. Estimated blood loss: Minimal. Procedure: Pre-Anesthesia Assessment: - Prior to the procedure, a History and Physical was performed, and patient medications and allergies were reviewed. The patient's tolerance of previous anesthesia was also reviewed. The risks and benefits of the procedure and the sedation options and risks were discussed with the patient. All questions were answered, and informed consent was obtained. Prior Anticoagulants: The patient has taken no anticoagulant or antiplatelet agents. After reviewing the risks and benefits, the patient was deemed in satisfactory condition to undergo the procedure. After obtaining informed consent, the endoscope was passed under direct vision. Throughout the procedure, the patient's blood pressure, pulse, and oxygen saturations were monitored continuously. The Endoscope was introduced through the mouth, and advanced to the fourth part of duodenum. The upper GI endoscopy was accomplished without difficulty. The patient tolerated the procedure well. Scope In: 7:33:29 AM Scope Out: 7:41:20 AM Total Procedure Duration Time 0 hours 7 minutes 51 seconds Findings: One benign-appearing, intrinsic mild stenosis was found at the gastroesophageal junction. This stenosis measured less than one cm (in length). The stenosis was traversed. A TTS dilator was passed through the scope. Dilation with a 15-16.5-18 mm balloon dilator was performed to 16.5 mm. The dilation site was examined and showed mild improvement in luminal narrowing. The examined duodenum was normal. The stomach was normal. Impression: - Benign-appearing esophageal stenosis. Dilated. - Normal examined duodenum. - Normal stomach. - No specimens collected. Recommendation: - Discharge patient to home. - Resume previous diet. - Continue present medications. Procedure Code(s): --- Professional --- 45275, Esophagogastroduodenoscopy, flexible, transoral; with transendoscopic balloon dilation of esophagus (less than 30 mm diameter) Diagnosis Code(s): --- Professional --- K22.2, Esophageal obstruction R13.10, Dysphagia, unspecified R12, Heartburn CPT copyright 2021 [employer]. All rights reserved. The codes documented in this report are preliminary and upon almond blancher hand review may be revised to meet current compliance requirements. Raul Torres MD 04/07/2023 8:07:20 AM This report has been signed electronically. Number of Addenda: 0 Note Initiated On: 04/07/2023 5:29 AM
--- NOTE | 2023-04-07 08:09 | OP.CCLET_ITS ---
04/07/2023 Leonel Narayanan Re : Colonoscopy procedure for Deedee Cortes Dear Jaquan This procedure was performed on Friday, April 07, 2023. My impressions and recommendations are as follows: Impressions : - The entire examined colon is normal on direct and retroflexion views. - Diverticulosis in the sigmoid colon. - No specimens collected. Recommendations : - Discharge patient to home. - Resume previous diet. - Continue present medications. - Await pathology results. - Repeat colonoscopy in 10 years for screening purposes. My findings are described in the full procedure note, which is enclosed. If I can be of further assistance, please feel free to contact me at Doctor phone number(s): , Work: . Sincerely, Raul Torres MD 04/07/2023 8:08:44 AM This report has been signed electronically.
--- NOTE | 2023-04-07 08:09 | OP.COLON_ITS ---
Patient Name: Deedee Cortes Procedure Date: 04/07/2023 7:42 AM Date of : 1955 Age: 67 Procedure: Colonoscopy Indications: Screening for colorectal malignant neoplasm Providers: Raul Torres MD Referring MD: Raul Torres MD Medicines: Monitored Anesthesia Care Patient Profile: This is a 67 year old female. Refer to note in patient chart for documentation of history and physical. Last Colonoscopy: more than 10 years ago. Complications: No immediate complications. Estimated blood loss: Minimal. Procedure: Pre-Anesthesia Assessment: - Prior to the procedure, a History and Physical was performed, and patient medications and allergies were reviewed. The patient's tolerance of previous anesthesia was also reviewed. The risks and benefits of the procedure and the sedation options and risks were discussed with the patient. All questions were answered, and informed consent was obtained. Prior Anticoagulants: The patient has taken no anticoagulant or antiplatelet agents. After reviewing the risks and benefits, the patient was deemed in satisfactory condition to undergo the procedure. - Prior to the procedure, a History and Physical was performed, and patient medications and allergies were reviewed. The patient's tolerance of previous anesthesia was also reviewed. The risks and benefits of the procedure and the sedation options and risks were discussed with the patient. All questions were answered, and informed consent was obtained. Prior Anticoagulants: The patient has taken no anticoagulant or antiplatelet agents. After reviewing the risks and benefits, the patient was deemed in satisfactory condition to undergo the procedure. After I obtained informed consent, the scope was passed under direct vision. Throughout the procedure, the patient's blood pressure, pulse, and oxygen saturations were monitored continuously. The Colonoscope was introduced through the anus and advanced to the cecum, identified by appendiceal orifice and ileocecal valve. The colonoscopy was performed without difficulty. The patient tolerated the procedure well. The quality of the bowel preparation was good. The ileocecal valve, appendiceal orifice, and rectum were photographed. Scope In: 7:44:03 AM Scope Withdrawal Time 0 hours 5 minutes 56 seconds Scope Out: 7:56:14 AM Total Procedure Duration Time 0 hours 12 minutes 11 seconds Findings: The entire examined colon appeared normal on direct and retroflexion views. Multiple small-mouthed diverticula were found in the sigmoid colon. Impression: - The entire examined colon is normal on direct and retroflexion views. - Diverticulosis in the sigmoid colon. - No specimens collected. Recommendation: - Discharge patient to home. - Resume previous diet. - Continue present medications. - Await pathology results. - Repeat colonoscopy in 10 years for screening purposes. Procedure Code(s): --- Professional --- 50182, Colonoscopy, flexible; diagnostic, including collection of specimen(s) by brushing or washing, when performed (separate procedure) Diagnosis Code(s): --- Professional --- Z12.11, Encounter for screening for malignant neoplasm of colon K57.30, Diverticulosis of large intestine without perforation or abscess without bleeding CPT copyright 2021 [employer]. All rights reserved. The codes documented in this report are preliminary and upon faceter review may be revised to meet current compliance requirements. Raul Torres MD 04/07/2023 8:08:44 AM This report has been signed electronically. Number of Addenda: 0 Note Initiated On: 04/07/2023 7:42 AM
[2023-04-07 08:10] VITALS: BP 110/67; BP 149/90; PULSE 85; RESP 16; O2SAT 98
[2023-04-07 08:15] VITALS: BP 120/68; BP 149/90; PULSE 81; RESP 16; TEMP 36.6; O2SAT 98
[2023-04-07 08:40] VITALS: BP 149/90
== END 2023-04-07 09:27 | disposition home or self-care (01) ==
LOC: EN 06:17 → AC 06:18
PROVIDERS: PCP Nurse Practitioner Family; Referring Provider Nurse Practitioner Family; Visit Provider Surgery
PROC: 0DJD8ZZ Inspection of Lower Intestinal Tract, Via Natural or Artificial Opening Endoscopic (ICD-10-PCS; CPT 45378; principal; 2023-04-07 07:25)
DX: Z12.11 Encounter for screening for malignant neoplasm of colon (principal); K22.2 Esophageal obstruction; K57.30 Diverticulosis of large intestine without perforation or abscess without bleeding; R13.10 Dysphagia, unspecified; I10 Essential (primary) hypertension; K21.9 Gastro-esophageal reflux disease without esophagitis; F41.9 Anxiety disorder, unspecified; F32.A Depression, unspecified; Z79.82 Long term (current) use of aspirin; Z79.899 Other long term (current) drug therapy; Z87.891 Personal history of nicotine dependence
CPT/HCPCS: 45378; 43249; J7120; J1610; J2405

== ENCOUNTER → 2023-07-28 | Outpatient (CLI) | payer MEDICARE, SELFPAY ==
[2023-07-28 12:22] LABS: Absolute Lymphocyte Count 2.34 X10^3/uL (0.83-4.51); Absolute Neutrophil Count 3.4 X10^3/uL (2.0-7.7); Basophil# 0.07 X10^3/uL; Basophil% 1.1 % (0-1); Eosinophil# 0.17 X10^3/uL; Eosinophils% 2.6 % (0-5); Hematocrit 44.3 % (37-47); Hemoglobin 14.2 g/dL (12.0-15.0); Lymphocyte # 2.34 X10^3/ul (0.83-4.51); Lymphocyte % 35.3 % (19-41); Mean Corp Hgb Conc 32.1 g/dL (32-36); Mean Corpuscular Hgb 28.9 pg (27.0-32.0); Mean Corpuscular Volume 90.2 fL (81-99); Mean Platelet Vol. 8.5 fl (6.2-12.0); Monocyte# 0.64 X10^3/uL; Monocyte% 9.7 % (0-10); NRBC Flagged by Analyzer 0 % (0-5); Neutrophil % 51.1 % (47-70); Platelet Count 260 K/mm3 (150-450); RBC Distribution Width CV 13.1 % (11.6-14.6); RBC Distribution Width SD 43.1 fl (35.1-43.9); Red Blood Count 4.91 M/mm3 (4.2-5.4); White Blood Count 6.6 K/mm3 (4.4-11.0)
[2023-07-28 12:44] LABS: ALB/GLOB Ratio 0.9 RATIO (0.9-2.4); AST(SGOT) 22 U/L (15-37); Alanine Aminotransfer ALT/SGPT 30 U/L (13-56); Albumin, Serum 3.5 g/dL (3.2-5.0); Alkaline Phosphatase 77 U/L (45-117); Anion Gap 7 (5-15); BUN 9 mg/dL (7-18); BUN/Creat Ratio 11.1 RATIO (10-20); Chloride 105 mmol/L (98-107); Cholesterol 186 mg/dL (200); Creatinine, Serum 0.81 mg/dL (0.55-1.02); EST Glomerular Filtration Rate 75 mL/min (>60); Est Glom Filt Rate - Afr Amer 91 mL/min (>60); Globulin 4.1 g/dL (2.2-4.2); Glucose 93 mg/dL (74-106); High Density Lipoprotein 50 mg/dL; Potassium 4.2 mmol/L (3.5-5.1); Protein, Total 7.6 g/dL (6.4-8.2); Sodium Level 141 mmol/L (136-145); Triglycerides 142 mg/dL; Very Low Density Lipoprotein 28 mg/dL (5-40)
== END | disposition home or self-care (01) ==
LOC: BFHLAB 10:26
PROVIDERS: PCP Nurse Practitioner Family; Referring Provider Nurse Practitioner Family; Visit Provider Nurse Practitioner Family
DX: I10 Essential (primary) hypertension (principal); E78.5 Hyperlipidemia, unspecified
CPT/HCPCS: 36415; 80053; 80061; 85025

== ENCOUNTER → 2023-10-12 | Outpatient (CLI) | payer MEDICARE, SELFPAY ==
--- NOTE | 2023-10-12 12:35 | RAD_ITS ---
STUDY: X-RAY - RIGHT KNEE REASON FOR EXAM: Female, 67 years old. RIGHT KNEE PAIN TECHNIQUE: 4 views of the right knee. COMPARISON: None. FINDINGS: Normal visualized distal femur. Normal visualized proximal tibia and fibula. Normal proximal tibiofibular articulation. There is no demonstrated fracture. Normal medial femorotibial compartment. Normal lateral femorotibial compartment. Normal patellofemoral articulation. There is mild prepatellar soft tissue swelling. RAD/Knee 4 or More Views IMPRESSION: Mild prepatellar soft tissue swelling. Electronically Signed: Alvarez Sánchez MD at 13:22 EDT ,
== END | disposition home or self-care (01) ==
LOC: RAD 12:21
PROVIDERS: PCP Nurse Practitioner Family; Referring Provider Nurse Practitioner Family; Visit Provider Nurse Practitioner Family
DX: M25.561 Pain in right knee (principal)
CPT/HCPCS: 73564

== ENCOUNTER → 2023-10-23 | Outpatient (CLI) | payer MEDICARE, SELFPAY ==
--- NOTE | 2023-10-23 09:02 | RAD_ITS ---
STUDY: X-RAY CHEST REASON FOR EXAM: Female, 67 years old. Atypical chest pain TECHNIQUE: PA and lateral views of the chest. COMPARISON: None. FINDINGS: The lungs are clear and expanded. There is no demonstrated pleural abnormality. Normal size heart. Normal mediastinum and roman. Normal visualized pulmonary arteries. Normal visualized aortic arch and descending thoracic aorta. Normal visualized thoracic spine. Normal visualized ribs, clavicles, and shoulders. There is no demonstrated abnormality of the visualized soft tissue structures of the upper abdomen. RAD/Chest PA and Lateral IMPRESSION: Normal x-ray examination of the chest. Electronically Signed: Cristhian Schmitt MD at 8:49 EDT ,
== END | disposition home or self-care (01) ==
PROVIDERS: PCP Nurse Practitioner Family; Referring Provider Nurse Practitioner Family; Visit Provider Nurse Practitioner Family
DX: R07.89 Other chest pain (principal)
CPT/HCPCS: 71046

== ENCOUNTER → 2024-08-31 | Outpatient (CLI) | payer MEDICARE, SELFPAY ==
[2024-08-31 15:27] LABS: Absolute Neutrophil Count 4.8 X10^3/uL (2.0-7.7); Basophil# 0.09 X10^3/uL; Basophil% 1.1 % (0-1); Eosinophil# 0.19 X10^3/uL; Eosinophils% 2.4 % (0-5); Hematocrit 43.4 % (37-47); Hemoglobin 14.1 g/dL (12.0-15.0); Lymphocyte % 27.8 % (19-41); Mean Corp Hgb Conc 32.5 g/dL (32-36); Mean Corpuscular Hgb 29.6 pg (27.0-32.0); Mean Corpuscular Volume 91.2 fL (81-99); Monocyte# 0.65 X10^3/uL; Monocyte% 8.2 % (0-10); NRBC Flagged by Analyzer 0 % (0-5); Neutrophil # 4.76 X10^3/uL (2.7-7.7); Neutrophil % 60.2 % (47-70); Platelet Count 289 K/mm3 (150-450); RBC Distribution Width CV 13.5 % (11.6-14.6); RBC Distribution Width SD 45.9 fl (35.1-43.9); Red Blood Count 4.76 M/mm3 (4.2-5.4); White Blood Count 7.9 K/mm3 (4.4-11.0)
[2024-08-31 16:24] LABS: ALB/GLOB Ratio 1.3 RATIO (0.9-2.4); AST(SGOT) 26 U/L (<=31); Alanine Aminotransfer ALT/SGPT 28 U/L (<=34); Albumin, Serum 4.2 g/dL (3.4-4.8); Alkaline Phosphatase 82 U/L (35-104); Anion Gap 13 (5-15); BUN 12 mg/dL (4-19); BUN/Creat Ratio 16.1 RATIO (10-20); Calcium,Total 9.5 mg/dL (7.6-11.0); Carbon Dioxide 23.1 mmol/L (21.0-32.0); Chloride 103 mmol/L (98-108); Cholesterol 186 mg/dL (<=200); Creatinine, Serum 0.76 mg/dL (0.70-1.20); EST Glomerular Filtration Rate 85 (>60); Globulin 3.3 g/dL (2.2-4.2); Glucose 88 mg/dL (70-99); High Density Lipoprotein 50 mg/dL; Low Density Lipoprotein Calc. 115 mg/dL; Potassium 4.7 mmol/L (3.3-5.1); Protein, Total 7.4 g/dL (5.9-8.4); Sodium Level 139 mmol/L (133-145); Triglycerides 105 mg/dL; Very Low Density Lipoprotein 21 mg/dL (5-40); cholesterol:hdl ratio screen 3.74
== END | disposition home or self-care (01) ==
LOC: BFHLAB 11:43
PROVIDERS: PCP Nurse Practitioner Family; Visit Provider Nurse Practitioner Family
DX: I10 Essential (primary) hypertension (principal); E78.5 Hyperlipidemia, unspecified; H05.20 Unspecified exophthalmos
CPT/HCPCS: 36415; 80053; 80061; 84439; 84443; 85025

== ENCOUNTER → 2024-09-02 | Outpatient (CLI) | payer MEDICARE, SELFPAY ==
--- NOTE | 2024-09-02 14:57 | BI_ITS ---
EXAM: SCRN MAMM (CAD)W/DIANA BILAT DATE: 09/02/2024 CLINICAL HISTORY: F, Age 68 y/o , SCREENING TECHNIQUE: SCRN MAMM (CAD)W/DIANA BILAT COMPARISON: Prior exam(s) were compared FINDINGS: TISSUE DENSITY: There are scattered areas of fibroglandular density. Bilateral Breast Mammographic Findings: No significant masses, calcifications or other abnormalities are identified. BI/SCRN MAMM (CAD)W/DIANA BILAT IMPRESSION: No mammographic evidence of malignancy in either breast OVERALL FINAL ASSESSMENT BI-RADS 1: NEGATIVE. RECOMMEND ANNUAL MAMMOGRAPHIC SCREENING. RECOMMENDATION: Routine annual follow-up in 1 Year A letter with findings and recommendations will be mailed to the patient. Reading Location: [id number]
== END | disposition home or self-care (01) ==
LOC: OPBI 14:53
PROVIDERS: PCP Nurse Practitioner Family; Referring Provider Nurse Practitioner Family; Visit Provider Nurse Practitioner Family
DX: Z12.31 Encounter for screening mammogram for malignant neoplasm of breast (principal)
CPT/HCPCS: 77063; 77067